=== PATIENT | female | born 1950 | race African-American/Black ===

== ENCOUNTER 2024-03-23 22:28 | Emergency (ER) | payer OTHER, MEDICARE ==
[~2024-03-23] VITALS: Ht 152.4 cm; Wt 70.3 kg
[2024-03-23 22:37] VITALS: BP_SYST 138; PULSE 98; RESP 18; TEMP 97.5; O2SAT 97
[2024-03-24] MEDS: KETOROLAC TROMETHAMINE 15 MG VIAL IM ONE (00:25)
[2024-03-24 01:01] LABS: ALANINE AMINOTRANSFERASE 11 U/L (12-78); ALBUMIN 3.9 g/dL (3.4-4.8); ANION GAP 11 (5-15); ASPARTATE AMINOTRANSFERASE 15 U/L (10-37); CALCIUM 9.7 mg/dL (8.4-11.0); CARBON DIOXIDE 25 mmol/L (23-29); CHLORIDE 104 mmol/L (98-107); CREATININE 1.15 mg/dL (0.55-1.30); GLUCOSE 135 mg/dL (74-106); POTASSIUM 3.7 mmol/L (3.5-5.1); SODIUM SERUM 140 mmol/L (136-145); TOTAL BILIRUBIN 1.6 mg/dL (0.0-1.0); TOTAL PROTEIN, SERUM 8.8 g/dL (6.4-8.3); UREA NITROGEN, BLOOD 9 mg/dL (8-21)
[2024-03-24 01:02] LABS: BILIRUBIN,DIRECT 0.3 mg/dL (0.0-0.3); LIPASE 22 U/L (16-77)
[2024-03-24 01:09] LABS: BASOPHILS % (AUTO) 0.1 % (0.0-2.0); HEMATOCRIT 42.2 % (36-48); HEMOGLOBIN 14.1 g/dL (12.0-16.0); LYMPHOCYTES # (AUTO) 2.2 K/uL (1.0-5.5); LYMPHOCYTES % (AUTO) 13.5 % (20.5-51.5); MEAN CORPUSCULAR HEMOGLOBIN 28 pg (27-31); MEAN CORPUSCULAR HGB CONC 33 % (32-36); MEAN CORPUSCULAR VOLUME 84 fL (79.0-98.0); MONOCYTES # (AUTO) 1.4 K/uL (0.0-1.0); MONOCYTES % (AUTO) 8.8 % (1.7-9.3); NEUTROPHILS # (AUTO) 12.6 K/uL (1.8-7.7); NEUTROPHILS % (AUTO) 77.6 % (40.0-70.0); PLATELET COUNT (AUTO) 313 K/uL (130-430); RED BLOOD CELL COUNT(AUTO) 5.02 MIL/uL (4.2-6.2); WHITE BLOOD COUNT (AUTO) 16.3 K/uL (4.8-10.8)
[2024-03-24] MEDS: ACETAMINOPHEN 325 MG TABLET PO ONE (01:11)
[2024-03-24] MEDS: MAGNESIUM CITRATE 300 ML ORAL SOLUTION PO ONE (01:11)
[2024-03-24 01:20] LABS: BILIRUBIN,URINE 1+ (NEGATIVE); BLOOD, URINE 2+ (NEGATIVE); CLARITY/URINE CLEAR (CLEAR); COLOR,URINE YELLOW (YELLOW); GLUCOSE,URINE NEGATIVE (NEGATIVE); KETONES,URINE 1+ (NEGATIVE); LEUKOCYTE ESTERASE ,URINE NEGATIVE (NEGATIVE); NITRITE, URINE NEGATIVE (NEGATIVE); PROTEIN URINE 1+ (NEGATIVE); UROBILINOGEN,URINE 0.2 (0.2-1.0)
[2024-03-24 01:33] LABS: BACTERIA,URINE RARE /HPF (None Seen); WBC,URINE 0-3 /HPF (0-3)
[2024-03-24] MEDS ORDERED: DOCU-144 PO (01:34)
[2024-03-24] MEDS ORDERED: AUG875 PO (01:34)
[2024-03-24] MEDS ORDERED: POLY17PO4 PO (01:34)
[2024-03-24] MEDS ORDERED: ACET-2634 PO (01:34)
[2024-03-24 02:05] VITALS: BP_SYST 131; PULSE 77; RESP 18; TEMP 97.6; O2SAT 97
== END 2024-03-24 02:00 | disposition home or self-care (01) ==
LOC: SED 22:28
DX: K57.32 Diverticulitis of large intestine without perforation or abscess without bleeding (principal); K59.00 Constipation, unspecified; R19.7 Diarrhea, unspecified; Z98.890 Other specified postprocedural states
CPT/HCPCS: 36415; 80048; 80076; 81000; 81001; 81015; 83690; 85025; 99284; J1885